=== PATIENT | female | born 1950 | race Caucasian/White ===

== ENCOUNTER → 2016-08-21 | Outpatient (REF) | payer MEDICARE, OTHER ==
[~2016-08-21] MED LIST: CPR500T PO; CYAN50TA PO; DIAPLEX PO; JOINT SUPPORT PO; LEVO125T PO; METF500T4 PO; METR500T17 PO; MULT-301 PO; OMEG300C3 PO; ONDAN4ODT PO; TRAM-25 PO; [UNRECOGNIZED DRUG - OTHER] PO; [UNRECOGNIZED DRUG - OTHER] PO; [UNRECOGNIZED DRUG - OTHER] PO
== END ==
LOC: LAB 09:20
PROVIDERS: ATTEND Family Medicine
DX: E11.9 Type 2 diabetes mellitus without complications (principal)
CPT/HCPCS: 83036

== ENCOUNTER → 2016-11-26 | Outpatient (REF) | payer MEDICARE, OTHER | LOC: LAB 11:14 | PROVIDERS: ATTEND Family Medicine | DX: R73.02 Impaired glucose tolerance (oral) (principal); E03.8 Other specified hypothyroidism | CPT/HCPCS: 83036; 84439; 84443 ==

== ENCOUNTER → 2016-11-26 | Outpatient (CLI) | payer MEDICARE, OTHER ==
--- NOTE | 2016-11-26 18:03 | Diagnostic Imaging Report ---
DIGITAL MAMMO RT DIAG W/CAD COMPARISON: Right breast mammogram of 05/23/2016 and bilateral screening mammogram of 05/08/2016. INDICATION: Further evaluation of microcalcifications. TECHNIQUE: Digital diagnostic mammography of right breast was performed with a computer-aided detection (CAD) system. Spot compression magnification views were included. FINDINGS: The right breast is almost entirely fatty. Numerous scattered benign monomorphic calcifications are similar. The small group of microcalcifications in the central deep breast have not changed and are predominantly round. No new suspicious groups of microcalcifications. IMPRESSION: 1. Small group of microcalcifications in the deep central right breast is unchanged. Recommend patient return for bilateral mammogram in six months which should be treated as diagnostic as spot magnification views of the right breast calcifications are recommended to ensure stability. ACR BI-RADS Category 3: Probably benign findings. Result letter will be mailed to the patient. Note: At least 10% of breast cancer is not imaged by mammography. Dictated by: Dictated on workstation # [id number]
== END ==
LOC: RAD 12:50
PROVIDERS: ATTEND Family Medicine
DX: R92.0 Mammographic microcalcification found on diagnostic imaging of breast (principal)